=== PATIENT | female | born 2000 | race Caucasian/White ===

== ENCOUNTER 2021-10-23 07:30 | Inpatient (IN) | payer MEDICAID, OTHER ==
[~2021-10-23] VITALS: Ht 165.1 cm; Wt 43.6 kg
[~2021-10-23 07:30] MED LIST: HYDR-4808 PO; SERT-158 PO
[2021-10-23 08:13] LABS: BASOPHILS % (AUTO) 0.9 % (0.0-2.0); EOSINOPHILS % (AUTO) 0.8 % (1.0-6.0); HEMOGLOBIN 14.6 g/dL (12.0-16.0); LYMPHOCYTES % (AUTO) 15.1 % (22.0-44.0); MEAN CORPUSCULAR HEMOGLOBIN 30.1 pg (26.0-34.0); MEAN CORPUSCULAR HGB CONC 33.1 G/dL (31.0-37.0); MEAN CORPUSCULAR VOLUME 91 fL (80-100); MONOCYTES # (AUTO) 0.4 K/uL (0.1-1.0); MONOCYTES % (AUTO) 6.7 % (2.0-9.0); NEUTROPHILS # (AUTO) 5.1 K/uL (1.8-7.7); NEUTROPHILS % (AUTO) 76.5 % (40.0-70.0); PLATELET COUNT (AUTO) 216 K/uL (150-450); RED BLOOD CELL COUNT(AUTO) 4.84 MIL/uL (4.00-5.20); RED CELL DISTRIBUTION WIDTH 13.5 % (11.5-14.5)
[2021-10-23 08:22] LABS: AMPHET/METH SCREEN,URINE NEGATIVE (NEGATIVE); BARBITURATE SCREEN, URINE NEGATIVE (NEGATIVE); BENZODIAZEPINES SCREEN,URINE NEGATIVE (NEGATIVE); CANNABINOID SCREEN,URINE POSITIVE (NEGATIVE); COCAINE SCREEN,URINE NEGATIVE (NEGATIVE); METHADONE SCREEN, URINE NEGATIVE (NEGATIVE); OPIATE SCREEN,URINE NEGATIVE (NEGATIVE); PHENCYCLIDINE SCREEN,URINE NEGATIVE (NEGATIVE)
[2021-10-23 08:22] LABS: ANION GAP 13 mmol/L (8-16); CALCIUM, TOTAL 9.6 mg/dL (8.8-10.5); CARBON DIOXIDE 25 mmol/L (22-29); CHLORIDE 97 mmol/L (98-107); CREATININE 0.83 mg/dL (0.60-1.30); GLOMERULAR FILTR. RATE CALC > 60 mL/min (>60); GLUCOSE,RANDOM 86 mg/dL (70-110); POTASSIUM 3.4 mmol/L (3.5-5.1); SODIUM SERUM 135 mmol/L (136-145); UREA NITROGEN, BLOOD 13 mg/dL (7-18)
[2021-10-23 08:27] LABS: ALANINE AMINOTRANSFERASE 16 U/L (12-78); ALBUMIN 4.9 g/dL (3.4-5.0); ALKALINE PHOSPHATASE 68 U/L (46-116); ASPARTATE AMINOTRANSFERASE 12 U/L (15-37); BILIRUBIN,TOTAL 2.7 mg/dL (0.1-1.0); TOTAL PROTEIN, SERUM 8.6 g/dL (6.4-8.2)
[2021-10-23 10:03] LABS: COVID AG,FIA SOURCE NASOPHARYNGEAL
[2021-10-23] MEDS ORDERED: LORazepam 2 MG TABLET PO PRN (10:45)
[2021-10-23] MEDS ORDERED: HALOPERIDOL 5 MG TABLET PO PRN (10:45)
[2021-10-23] MEDS ORDERED: POTASSIUM CHLORIDE 10% 40 MEQ/30 ML LIQUID UDCUP PO ONE (11:15)
[2021-10-23 18:10] VITALS: BP 125/77
[2021-10-23] MEDS: ZOLPIDEM TARTRATE 10 MG TABLET PO PRN (21:53)
[2021-10-24 08:12] VITALS: BP 128/70
[2021-10-24 16:14] VITALS: BP 126/80
[2021-10-24] MEDS: ZOLPIDEM TARTRATE 10 MG TABLET PO PRN (20:29)
[2021-10-24] MEDS ORDERED: IBUPROFEN 600 MG TABLET PO PRN (23:00)
[2021-10-24] MEDS ORDERED: ALBUTEROL SULFATE HFA 90 MCG/PUFF 8 GM INHALER IH PRN (23:00)
[2021-10-24] MEDS ORDERED: CloNIDine HCL 0.1 MG TABLET PO PRN (23:00)
[2021-10-24] MEDS ORDERED: BACITRACIN 28 GM OINTMENT TP PRN (23:00)
[2021-10-24] MEDS ORDERED: ACETAMINOPHEN 325 MG TABLET PO PRN (23:00)
[2021-10-24] MEDS ORDERED: BENZOCAINE/MENTHOL LOZENGE PO PRN (23:00)
[2021-10-24] MEDS ORDERED: OMEPRAZOLE 20 MG CAPSULE PO PRN (23:00)
[2021-10-24] MEDS ORDERED: PETROLATUM,WHITE 28 GM JELLY TP PRN (23:00)
[2021-10-24] MEDS ORDERED: ONDANSETRON HCL 4 MG TABLET PO PRN (23:00)
[2021-10-24] MEDS ORDERED: DOCUSATE SODIUM 100 MG CAPSULE PO PRN (23:00)
[2021-10-24] MEDS ORDERED: LOPERAMIDE HCL 2 MG CAPSULE PO PRN (23:00)
[2021-10-24] MEDS ORDERED: MAG HYDROX/AL HYDROX/SIMETH ES 30 ML SUSPENSION UDCUP PO PRN (23:00)
[2021-10-24] MEDS ORDERED: MAGNESIUM HYDROXIDE SUSPENSION 30 ML UDCUP PO PRN (23:00)
[2021-10-25 00:25] VITALS: BP 102/62
[2021-10-25 08:23] VITALS: BP 98/98
[2021-10-25 08:28] LABS: HEMOGLOBIN A1C 5.2 % (3.8-5.6)
[2021-10-25] MEDS: RisperiDONE 2 MG TABLET PO SCH ×2 (08:28→16:09)
[2021-10-25] MEDS: DIVALPROEX SODIUM 500 MG DR TABLET PO SCH ×2 (08:28→20:14)
[2021-10-25 08:42] LABS: CHOL/HDL RATIO 2.7 (3.9-5.7); CHOLESTEROL 170 mg/dL (131-200); FREE T4 (FREE THYROXINE) 1.47 ng/dL (0.76-1.46); HDL CHOLESTEROL 62 mg/dL (40-60); LDL CHOL (CALC.) 100 mg/dL (0-130); THYROID STIMULATING HORMONE 1.16 uIU/mL (0.36-3.74); TRIGLYCERIDES 40 mg/dL (15-150)
[2021-10-25 08:50] LABS: ANION GAP 9 mmol/L (8-16); CALCIUM, TOTAL 9.3 mg/dL (8.8-10.5); CARBON DIOXIDE 27 mmol/L (22-29); CHLORIDE 103 mmol/L (98-107); CREATININE 0.63 mg/dL (0.60-1.30); GLOMERULAR FILTR. RATE CALC > 60 mL/min (>60); GLUCOSE,RANDOM 84 mg/dL (70-110); POTASSIUM 3.9 mmol/L (3.5-5.1); SODIUM SERUM 139 mmol/L (136-145); UREA NITROGEN, BLOOD 12 mg/dL (7-18)
[2021-10-25 16:21] VITALS: BP 112/64
[2021-10-26 01:26] VITALS: BP 103/62
[2021-10-26 07:09] LABS: PHOSPHORUS 4.8 mg/dL (2.5-4.9)
[2021-10-26 08:09] VITALS: BP 106/71
[2021-10-26] MEDS: RisperiDONE 2 MG TABLET PO SCH (08:41)
[2021-10-26] MEDS: DIVALPROEX SODIUM 500 MG DR TABLET PO SCH (08:41)
[2021-10-26] MEDS ORDERED: MULTIVITAMINS WITH MINERALS, THERAPEUTIC TABLET PO SCH (09:00)
[2021-10-26] MEDS ORDERED: RISP2TAB86 PO (14:39)
[2021-10-26] MEDS ORDERED: DIVA-112 PO (14:39)
== END 2021-10-26 12:00 | disposition home or self-care (01) | DRG 753 ==
LOC: EMS 07:33 → B2S 11:15
PROVIDERS: ADMIT Psychiatry & Neurology Psychiatry; ATTEND Psychiatry & Neurology Psychiatry
DX: F31.9 Bipolar disorder, unspecified (principal); R45.851 Suicidal ideations; E87.1 Hypo-osmolality and hyponatremia; K59.00 Constipation, unspecified; F41.9 Anxiety disorder, unspecified; E80.4 Gilbert syndrome; E87.6 Hypokalemia; G47.00 Insomnia, unspecified; Z20.822 Contact with and (suspected) exposure to COVID-19
CPT/HCPCS: 80048; 80053; 80061; 83036; 83735; 84100; 84439; 84443; 84703; 85025; 99285; G0480